=== PATIENT | male | born 1985 ===

== ENCOUNTER 2018-01-31 13:42 | Emergency (ER) | payer SELFPAY ==
[2018-01-31 13:54] VITALS: BP 111/59; PULSE 87; TEMP 98.4; O2SAT 99
[2018-01-31 14:53] VITALS: RESP 20
[2018-01-31] MEDS ORDERED: Albuterol-Ipratrop 3 mg / 0.5 (3 ml) UD ONE (15:20)
[2018-01-31] MEDS ORDERED: Albuterol 0.083% Inhal Sol (2.5 mg/3 mL) UD INH STA (15:28)
[2018-01-31] MEDS ORDERED: Albuterol-Ipratrop 3 mg / 0.5 (3 ml) UD INH STA (15:33)
--- NOTE | 2018-01-31 16:08 | RAD ---
HISTORY: Cough COMPARISON: No prior. TECHNIQUE: Chest PA and lateral FINDINGS: LINES AND TUBES: None. LUNG AND PLEURA: The lungs are well inflated and clear. No pleural effusion or pneumothorax. HEART AND MEDIASTINUM: The heart is not enlarged. The hilar and mediastinal contours are within normal limits. SKELETAL STRUCTURES: The bony structures are within normal limits for the patient's age. VISUALIZED UPPER ABDOMEN: Normal. OTHER FINDINGS: None. IMPRESSION: No active pulmonary disease.
--- NOTE | 2018-01-31 16:25 | ED PDOC ---
HPI: SOB/CHF/COPD Time Seen by Provider: 01/31/18 14:57 Chief Complaint (Nursing): Shortness Of Breath History Per: Patient Additional Complaint(s): Cough, wheezing x 1 day without fever. Pt. states he used his albuterol neb pump just OVAL OR CIRCULAR [employer]TER and symptoms improved while in ED. States he does have a hx of asthma but no previous intubations. Denies rash, chest pain, sick contacts, recent travel, hemoptysis. Past Medical History Reviewed: Historical Data, Nursing Documentation, Vital Signs Vital Signs: Last Vital Signs Temp 98.4 F 01/31/18 13:51 Pulse 87 01/31/18 13:51 Resp 20 01/31/18 14:51 BP 111/59 L 01/31/18 13:51 Pulse Ox 99 01/31/18 21:13 - Medical History PMH: Asthma - Family History Family History: States: No Known Family Hx - Home Medications Home Medications: Ambulatory Orders Medication Instructions Recorded Ibuprofen [Motrin] 600 mg PO Q6 PRN #20 tab 04/12/14 Albuterol 0.083% [Albuterol 3 ml IH Q4 PRN #30 neb 01/31/18 Sulfate 3 Ml] Albuterol HFA [Ventolin HFA 90 2 puff IH [id number] PRN #1 each 01/31/18 mcg/actuation (8 g)] Mask, Face [Nebulizer Aerosol Mask 1 dev NEB Q4 PRN #1 dev 01/31/18 Adult] Methylprednisolone [Medrol Dose 4 mg PO DAILY #21 mg 01/31/18 Pack (21 tabs)] - Allergies Allergies/Adverse Reactions: Allergies Allergy/AdvReac Type Severity Reaction Status Date / Time shellfish derived Allergy ANGIOEDEMA Verified 01/31/18 13:55 Review of Systems ROS Statement: Except As Marked, All Systems Reviewed And Found Negative ENT: Positive for: Throat Pain Respiratory: Positive for: Cough Physical Exam - Physical Exam Appears: Positive for: Well, Non-toxic, No Acute Distress Skin: Positive for: Normal Color, Warm. Negative for: Rash Eye Exam: Positive for: EOMI, Normal appearance, PERRL ENT: Positive for: Normal ENT Inspection. Negative for: Pharyngeal Erythema, Tonsillar Exudate, Tonsillar Swelling Neck: Positive for: Normal, Painless ROM Cardiovascular/Chest: Positive for: Regular Rate, Rhythm. Negative for: Tachycardia Respiratory: Positive for: Normal Breath Sounds. Negative for: Wheezing, Respiratory Distress Gastrointestinal/Abdominal: Positive for: Soft. Negative for: Tenderness Neurologic/Psych: Positive for: Alert, Oriented (x3) - ECG ECG: Positive for: Interpreted By Me ECG Rhythm: Positive for: Sinus Rhythm. Negative for: ST/T Changes O2 Sat by Pulse Oximetry: 99 - Radiology X-Ray: Interpreted by Me (CXR) X-Ray Interpretation: No Acute Disease - Progress ED Course And Treament: Albuterol neb, rapid strep, CXR ordered. On re-evaluation, pt. reports feeling much better. Lungs clear b/l. Disposition - Clinical Impression Clinical Impression: Bronchospasm, acute - Patient ED Disposition Is Patient to be Admitted: No - Disposition Referrals: Claudia Love MD [Primary Care Provider] - Disposition: Routine/Home Disposition Time: 16:23 Condition: IMPROVED Additional Instructions: JH CYR, thank you for letting us take care of you today. Your provider was Margy Dos Santos MD and you were treated for ASTHMA. The emergency medical care you received today was directed at your acute symptoms. If you were prescribed any medication, please fill it and take as directed. It may take several days for your symptoms to resolve. Return to the Emergency Department if your symptoms worsen, do not improve, or if you have any other problems. Please contact your doctor or call one of the physicians/clinics you have been referred to that are listed on the Patient Visit Information form that is included in your discharge packet. Bring any paperwork you were given at discharge with you along with any medications you are taking to your follow up visit. Our treatment cannot replace ongoing medical care by a primary care provider outside of the emergency department. [facility]. If you had an X-Ray or CT scan: A Radiologist will review the ED reading if any change in treatment is needed we will contact you. If you had a blood, urine, or wound culture: It will take several days for the results, if any change in treatment is needed we will contact you. If you had an STI test: It will take 48 hours for the results. Please call after 1 week if you have not heard back. Prescriptions: Albuterol HFA [Ventolin HFA 90 mcg/actuation (8 g)] 2 puff IH [id number] PRN #1 each PRN Reason: Wheezing Albuterol 0.083% [Albuterol Sulfate 3 Ml] 3 ml IH Q4 PRN #30 neb PRN Reason: Wheezing Mask, Face [Nebulizer Aerosol Mask Adult] 1 dev NEB Q4 PRN #1 dev PRN Reason: Wheezing Methylprednisolone [Medrol Dose Pack (21 tabs)] 4 mg PO DAILY #21 mg Instructions: Asthma, Adult (DC) Forms: [employer] ([place]) Print Language: BRAZILIAN
--- NOTE | 2018-02-01 07:56 | CARD ---
APPROVED REPORT Date of service: 01/31/2018 EKG Measurement Heart [id number] MD [id number] <Conclusion> Normal sinus rhythm with sinus arrhythmia Normal ECG
== END 2018-01-31 19:00 | disposition home or self-care (01) ==
LOC: H.ER 13:42
DX: J98.01 Acute bronchospasm (principal); J44.9 Chronic obstructive pulmonary disease, unspecified; Z79.899 Other long term (current) drug therapy

== ENCOUNTER 2018-05-31 18:50 | Emergency (ER) | payer SELFPAY ==
[2018-05-31 19:20] VITALS: BP 122/73; PULSE 82; RESP 14; TEMP 98.2; O2SAT 99
--- NOTE | 2018-05-31 19:26 | ED PDOC ---
HPI: Wound Care - HPI Time Seen by Provider: 05/31/18 19:24 Chief Complaint (Nursing): Suture/Staple Removal Chief Complaint (Provider): Suture removal History Per: Patient Exam Limitations: no limitations Additional Complaint(s): 32 year old male presents to the ED for suture removal. Patient reports he had the sutures placed on May 14 on the left knee. Suture were placed in the [place]. PMD: Gail Serna Past Medical History Reviewed: Historical Data, Nursing Documentation, Vital Signs Vital Signs: Last Vital Signs Temp 98.2 F 05/31/18 19:16 Pulse 82 05/31/18 19:16 Resp 14 05/31/18 19:16 BP 122/73 05/31/18 19:16 Pulse Ox 99 05/31/18 19:16 - Medical History PMH: Asthma - Surgical History Surgical History: No Surg Hx - Family History Family History: States: Unknown Family Hx - Home Medications Home Medications: Ambulatory Orders Medication Instructions Recorded Ibuprofen [Motrin] 600 mg PO Q6 PRN #20 tab 04/12/14 Albuterol 0.083% [Albuterol 3 ml IH Q4 PRN #30 neb 01/31/18 Sulfate 3 Ml] Albuterol HFA [Ventolin HFA 90 2 puff IH [id number] PRN #1 each 01/31/18 mcg/actuation (8 g)] Mask, Face [Nebulizer Aerosol Mask 1 dev NEB Q4 PRN #1 dev 01/31/18 Adult] Methylprednisolone [Medrol Dose 4 mg PO DAILY #21 mg 01/31/18 Pack (21 tabs)] - Allergies Allergies/Adverse Reactions: Allergies Allergy/AdvReac Type Severity Reaction Status Date / Time latex Allergy RASH Verified 05/31/18 19:20 shellfish derived Allergy ANGIOEDEMA Verified 05/31/18 19:20 Review of Systems ROS Statement: Except As Marked, All Systems Reviewed And Found Negative Physical Exam - Reviewed Nursing Documentation Reviewed: Yes Vital Signs Reviewed: Yes - Physical Exam Appears: Positive for: Non-toxic, No Acute Distress Head Exam: Positive for: ATRAUMATIC, NORMOCEPHALIC Skin: Positive for: Normal Color, Warm, Dry Eye Exam: Positive for: Normal appearance Neck: Positive for: Normal, Painless ROM Cardiovascular/Chest: Positive for: Regular Rate, Rhythm Respiratory: Positive for: Normal Breath Sounds. Negative for: Wheezing, Respiratory Distress Extremity: Positive for: Normal ROM, Other (Right knee: 4 buried sutures noted) Neurologic/Psych: Positive for: Alert, Oriented. Negative for: Motor/Sensory Deficits - ECG O2 Sat by Pulse Oximetry: 99 (RA) Pulse Ox Interpretation: Normal Medical Decision Making Medical Decision Making: Initial Plan: 3 sutures removed easily. 1 suture broke while trying to remove. Lidocaine 1% applied to area. Suture removed with forceps. Scribe Attestation: Documented by Nikhil Bauer acting as a scribe for Cady GAO. Provider Scribe Attestation: All medical record entries made by the Scribe were at my direction and personally dictated by me. I have reviewed the chart and agree that the record accurately reflects my personal performance of the history, physical exam, medical decision making, and the department course for this patient. I have also personally directed, reviewed, and agree with the discharge instructions and disposition. Disposition - Clinical Impression Clinical Impression: Removal of suture - Patient ED Disposition Is Patient to be Admitted: No - Disposition Disposition: Routine/Home Disposition Time: 20:53 Condition: FAIR Instructions: Stitches Removal
[2018-05-31] MEDS ORDERED: Lidocaine 2% Inj (20ml) ONE (19:35)
== END 2018-05-31 20:58 | disposition home or self-care (01) ==
LOC: H.ER 18:50
DX: Z48.02 Encounter for removal of sutures (principal)

== ENCOUNTER 2018-10-04 14:11 | Emergency (ER) | payer MEDICAID ==
[2018-10-04] MEDS ORDERED: Iohexol 240 (50 ml) PO ONE (15:19)
[2018-10-04] MEDS ORDERED: Sodium Chloride 0.9% 1,000 ML IV STA (15:19)
[2018-10-04] MEDS ORDERED: Iohexol 240 (50 ml) ONE (15:23)
--- NOTE | 2018-10-04 15:29 | ED PDOC ---
HPI: Abdomen Time Seen by Provider: 10/04/18 14:30 Chief Complaint (Nursing): Abdominal Pain Chief Complaint (Provider): Abdominal Pain History Per: Patient History/Exam Limitations: no limitations Onset/Duration Of Symptoms: Worse Since (x2 hours) Current Symptoms Are (Timing): Still Present Additional Complaint(s): 32 year old male with pshx of a gastric sleeve placement two years ago presents to the ED for ongoing upper abdominal pain worsening over the past two hours s/p eating a meal. Denies vomiting, diarrhea, and fever. Past Medical History Reviewed: Historical Data, Nursing Documentation, Vital Signs Vital Signs: Last Vital Signs Temp 97.2 F L 10/04/18 14:13 Pulse 88 10/04/18 14:13 Resp 20 10/04/18 14:13 BP 132/82 10/04/18 14:13 Pulse Ox 99 10/04/18 14:13 Primary Care Provider: Claudia Love - Medical History PMH: Asthma - Surgical History Other surgeries: gastric sleeve 2 years ago - Family History Family History: States: Unknown Family Hx - Social History Current smoker - smoking cessation education provided: No Alcohol: None Drugs: Denies - Home Medications Home Medications: Ambulatory Orders Medication Instructions Recorded Ibuprofen [Motrin] 600 mg PO Q6 PRN #20 tab 04/12/14 Albuterol 0.083% [Albuterol 3 ml IH Q4 PRN #30 neb 01/31/18 Sulfate 3 Ml] Albuterol HFA [Ventolin HFA 90 2 puff IH [id number] PRN #1 each 01/31/18 mcg/actuation (8 g)] Mask, Face [Nebulizer Aerosol Mask 1 dev NEB Q4 PRN #1 dev 01/31/18 Adult] Methylprednisolone [Medrol Dose 4 mg PO DAILY #21 mg 01/31/18 Pack (21 tabs)] Famotidine [Pepcid] 20 mg PO BID PRN #10 tab 10/04/18 - Allergies Allergies/Adverse Reactions: Allergies Allergy/AdvReac Type Severity Reaction Status Date / Time latex Allergy RASH Verified 05/31/18 19:20 shellfish derived Allergy ANGIOEDEMA Verified 05/31/18 19:20 Review of Systems ROS Statement: Except As Marked, All Systems Reviewed And Found Negative Constitutional: Negative for: Fever Gastrointestinal: Positive for: Abdominal Pain (upper abdominal). Negative for: Vomiting, Diarrhea Physical Exam - Reviewed Nursing Documentation Reviewed: Yes Vital Signs Reviewed: Yes - Physical Exam Appears: Positive for: No Acute Distress Head Exam: Positive for: ATRAUMATIC, NORMOCEPHALIC Skin: Positive for: Normal Color, Warm Eye Exam: Positive for: Normal appearance ENT: Positive for: Normal ENT Inspection Neck: Positive for: Normal, Painless ROM, Supple Cardiovascular/Chest: Positive for: Regular Rate, Rhythm Respiratory: Positive for: Normal Breath Sounds. Negative for: Accessory Muscle Use, Respiratory Distress Gastrointestinal/Abdominal: Positive for: Bowel Sounds, Soft, Tenderness (mild upper abdominal/midepigastric tenderness, no RUQ tenderness). Negative for: Mass, Distended, Guarding, Rebound, Hernia, Asicites Extremity: Positive for: Normal ROM (all extremities) Neurological/Psych: Positive for: Awake, Alert, Oriented (x3) - Laboratory Results Result Diagrams: 10/04/18 15:28 10/04/18 15:28 Urine dip results: Negative for: Leukocyte Esterase, Blood, Nitrate, Ketones, Glucose, Bilirubin, Protein - ECG O2 Sat by Pulse Oximetry: 99 (RA) Pulse Ox Interpretation: Normal Medical Decision Making Medical Decision Making: Time: 1518 Initial Impression: abd pain r/o intraabdominal processes, rule out gastritis, pancreatitis Initial Plan: --CT abd/pelvis PO & IV contrast --CMP --Lipase chem --U-dip --CBC with differential --Normal saline IV --Toradol 30mg IV --Reevaluation CT FINDINGS: LOWER THORAX: Heart size is within range of normal. No significant pericardial effusion. There is a medium size hiatal hernia with slight wall thickening of the distal esophag us likely intrusion gastric mucosa. Esophagitis not excluded.. Layering contrast seen in the distal esophagus likely due to reflux.. Apparent postoperative changes of gastric sleeve. The LIVER: The liver exhibits normal size measuring approximately 16.4 cm in CC dimension. There appears to be some minimal periportal edema.. Portal and splenic veins are opacified. GALLBLADDER AND BILE DUCTS: Gallbladder physiologically distended. No evidence of intraluminal gallbladder calculi. Common bile duct is mildly dilated. PANCREAS: The pancreatic tail and distal body are bulky and exhibit a masslike protuberance projecting anterolaterally to the left side; as compared to the pancreatic midbody region which is diminutive in the AP dimension. While this could represent a normal variant, the possibility of a pancreatic tail mass cannot be excluded. Recommend follow-up CT scan of the abdomen employing pancreatic protocol. SPLEEN: Spleen is upper limits of normal in size. No obvious hepatic mass collection or calcification. ADRENALS: No adrenal lesions. KIDNEYS AND URETERS: Kidneys demonstrate symmetric nephrograms. No evidence of nephrolithiasis or hydronephrosis. No obvious renal masses or collections are identified. BLADDER: Urinary bladder appears incompletely distended which presumably in part accounts for slight wall thickening. Muscular hypertrophy may contribute. Consider follow-up urinalysis to exclude cystitis... No evidence of intraluminal urinary bladder calculi REPRODUCTIVE: Unremarkable as visualized. APPENDIX: Normal appendix. BOWEL: Evaluation of the bowel is somewhat limited due to incomplete opacification. Apparent postoperative changes of gastric sleeve. Visualized loops of small bowel exhibit normal contour and caliber. No evidence of acute mechanical small bowel obstruction. Stool and air seen throughout the large bowel. There are a few scattered colonic diverticula along the sigmoid colon however no radiographic evidence of acute diverticulitis. PERITONEUM: Unremarkable. No fluid collection. No free air. LYMPH NODES: Unremarkable. No enlarged lymph nodes. VASCULATURE: Unremarkable. No aortic aneurysm. No aortic atherosclerotic calcification or mural plaque present. BONES: Structures intact. OTHER FINDINGS: None. IMPRESSION: There is bulky appearance and masslike protuberance of the pancreatic tail as above with a diminutive appearance of the mid body of the pancreas in the AP dimension.. While this could be a anatomic variation, the possibility of a pancreatic tail lesion must be excluded therefore follow-up CT scan of the abdomen and point pancreatic protocol is recommended. Prominent common bile duct with mild periportal edema. Apparent postop changes of gastric sleeve. Medium size hiatal hernia with wall thickening of distal esophagus and what appears to represent layering of contrast material in the distal esophagus likely due to reflux. Findings suggest mild constipation. Diverticulosis without radiographic evidence of acute diverticulitis. Slight wall thickening of the urinary bladder in part due to incomplete distention with presumed muscular hypertrophy however correlation with ur inalysis to exclude cystitis. 1835 pt feels improved, states pain resolved, tolerated po Labs reviewed and lipase minimally elevated. LFTs slightly elevated. Discussed these findings with patient. Diagnosis of reflux, constipation, and possible pancreatic mass. Informed patient of all findings and instructed him to follow up outpatient with Dr. Wei for further workup in 1-2 days. pt aware of pancreas findings and need to follow up for that. Stable for discharge stating he feels much better. Will send home with copy of CT report to give to Genie when he follows up. Patient verbalized understanding and agreement of discharge instructions. Scribe Attestation: Documented by Lexis Monte, acting as a scribe for Brian Arceo MD. Provider Scribe Attestation: All medical record entries made by the Scribe were at my direction and personally dictated by me. I have reviewed the chart and agree that the record accurately reflects my personal performance of the history, physical exam, medical decision making, and the department course for this patient. I have also personally directed, reviewed, and agree with the discharge instructions and disposition. Disposition - Clinical Impression Clinical Impression: Abdominal pain, Constipation, Reflux esophagitis - Patient ED Disposition Is Patient to be Admitted: No Counseled Patient/Family Regarding: Studies Performed, Diagnosis, Need For Followup - Disposition Disposition: Routine/Home Disposition Time: 17:55 Condition: IMPROVED Additional Instructions: follow up with Dr Maloney, bring copy of CT rep[ort you will need to follow up with the clinic for further studies to evaluate the pancreas return to the ED with any worsening or concerning symptoms Prescriptions: Famotidine [Pepcid] 20 mg PO BID PRN #10 tab PRN Reason: Heartburn Instructions: Constipation in Adults, High Fiber Diet, Gastritis (DC), Acid Reflux (Gastroesophageal Reflux Disease) in Adults Forms: [employer] (Danish)
[2018-10-04 15:38] LABS: BASO % 0.4 % (0.0-2.0); EOS # 0.2 K/uL (0.0-0.7); EOS % 1.9 % (0.0-4.0); HEMOGLOBIN 14.8 g/dL (12.0-18.0); LYMPH # 1.2 K/uL (1.0-4.3); LYMPH % 12.5 % (20.0-40.0); MEAN CELL VOLUME 91.7 fl (80.0-94.0); MEAN CORPUSCULAR HEMOGLOBIN 31.9 pg (27.0-31.0); MEAN CORPUSCULAR HGB CONC 34.8 g/dL (33.0-37.0); MEAN PLATELET VOLUME 9.7 fl (7.2-11.7); MONO # 0.5 K/uL (0.0-0.8); MONO % 4.6 % (0.0-10.0); NEUT % 80.6 % (50.0-75.0); NRBC % 0.1 % (0.0-0.0); RBC 4.63 Mil/uL (4.40-5.90); RED CELL DISTRIBUTION WIDTH 12.9 % (11.5-14.5); WHITE BLOOD COUNT 9.9 K/uL (4.8-10.8)
[2018-10-04 15:50] LABS: ALB/GLOB RATIO 1.3 (1.0-2.1); ALBUMIN 4.6 g/dL (3.5-5.0); BLOOD UREA NITROGEN 14 mg/dl (9-20); CALCIUM 8.8 mg/dL (8.4-10.2); GFR NON-AFRICAN AMERICAN > 60; LIPASE 312 U/L (23-300)
[2018-10-04 16:05] LABS: ALT/SGPT 116 U/L (21-72); AST/SGOT 189 U/L (17-59)
[2018-10-04] MEDS ORDERED: Iohexol 300 100 ML IJ ONE (17:01)
[2018-10-04] MEDS ORDERED: Sodium Chloride 0.9% 50 ML IV ONE (17:01)
--- NOTE | 2018-10-04 17:58 | CT ---
Date of service: 10/04/2018 PROCEDURE: CT abdomen and pelvis HISTORY: Upper abdominal pain COMPARISON: None. TECHNIQUE: Contiguous axial images of the abdomen and pelvis performed following oral and intravenous injection of approximately 95 cc Omnipaque 300 contrast material. Additional 2D sagittal and coronal reformats generated. Radiation dose: Total exam DLP = 342.76 mGy-cm. This CT exam was performed using one or more of the following dose reduction techniques: Automated exposure control, adjustment of the mA and/or kV according to patient size, and/or use of iterative reconstruction technique. FINDINGS: LOWER THORAX: Heart size is within range of normal. No significant pericardial effusion. There is a medium size hiatal hernia with slight wall thickening of the distal esophagus likely intrusion gastric mucosa. Esophagitis not excluded.. Layering contrast seen in the distal esophagus likely due to reflux.. Apparent postoperative changes of gastric sleeve. The LIVER: The liver exhibits normal size measuring approximately 16.4 cm in CC dimension. There appears to be some minimal periportal edema.. Portal and splenic veins are opacified. GALLBLADDER AND BILE DUCTS: Gallbladder physiologically distended. No evidence of intraluminal gallbladder calculi. Common bile duct is mildly dilated. PANCREAS: The pancreatic tail and distal body are bulky and exhibit a masslike protuberance projecting anterolaterally to the left side; as compared to the pancreatic midbody region which is diminutive in the AP dimension. While this could represent a normal variant, the possibility of a pancreatic tail mass cannot be excluded. Recommend follow-up CT scan of the abdomen employing pancreatic protocol. SPLEEN: Spleen is upper limits of normal in size. No obvious hepatic mass collection or calcification. ADRENALS: No adrenal lesions. KIDNEYS AND URETERS: Kidneys demonstrate symmetric nephrograms. No evidence of nephrolithiasis or hydronephrosis. No obvious renal masses or collections are identified. BLADDER: Urinary bladder appears incompletely distended which presumably in part accounts for slight wall thickening. Muscular hypertrophy may contribute. Consider follow-up urinalysis to exclude cystitis... No evidence of intraluminal urinary bladder calculi REPRODUCTIVE: Unremarkable as visualized. APPENDIX: Normal appendix. BOWEL: Evaluation of the bowel is somewhat limited due to incomplete opacification. Apparent postoperative changes of gastric sleeve. Visualized loops of small bowel exhibit normal contour and caliber. No evidence of acute mechanical small bowel obstruction. Stool and air seen throughout the large bowel. There are a few scattered colonic diverticula along the sigmoid colon however no radiographic evidence of acute diverticulitis. PERITONEUM: Unremarkable. No fluid collection. No free air. LYMPH NODES: Unremarkable. No enlarged lymph nodes. VASCULATURE: Unremarkable. No aortic aneurysm. No aortic atherosclerotic calcification or mural plaque present. BONES: Structures intact. OTHER FINDINGS: None. IMPRESSION: There is bulky appearance and masslike protuberance of the pancreatic tail as above with a diminutive appearance of the mid body of the pancreas in the AP dimension.. While this could be a anatomic variation, the possibility of a pancreatic tail lesion must be excluded therefore follow-up CT scan of the abdomen and point pancreatic protocol is recommended. Prominent common bile duct with mild periportal edema. Apparent postop changes of gastric sleeve. Medium size hiatal hernia with wall thickening of distal esophagus and what appears to represent layering of contrast material in the distal esophagus likely due to reflux. Findings suggest mild constipation. Diverticulosis without radiographic evidence of acute diverticulitis. Slight wall thickening of the urinary bladder in part due to incomplete distention with presumed muscular hypertrophy however correlation with urinalysis to exclude cystitis.
[2018-10-04 19:21] VITALS: BP 109/63; PULSE 62; RESP 18; TEMP 97.7
[2018-10-04 19:54] VITALS: O2SAT 99
== END 2018-10-04 19:25 | disposition home or self-care (01) ==
LOC: H.ER 14:11
DX: R10.9 Unspecified abdominal pain (principal); K59.00 Constipation, unspecified; K21.0 Gastro-esophageal reflux disease with esophagitis; J45.909 Unspecified asthma, uncomplicated
CPT/HCPCS: 74177; 80053; 83690; 85025; 96361; 96374; 99283; J1885; J7030; Q9966; Q9967